=== PATIENT | male | born 1970 | race Caucasian/White ===

== ENCOUNTER 2016-08-24 22:55 | Inpatient (IN) | payer OTHER ==
[~2016-08-24] VITALS: Ht 172.7 cm; Wt 89.9 kg
[2016-08-25] MEDS ORDERED: MAALOX 30 ML SUSP *UDC PO PRN ×2 (00:15→10:45)
[2016-08-25] MEDS ORDERED: ACETAMINOPHEN TAB 650MG DOSE (2X325MG) PO PRN ×2 (00:15→10:45)
[2016-08-25] MEDS ORDERED: MOM 30ML SUSPENSION UDC PO PRN ×2 (00:15→10:45)
[2016-08-25] MEDS ORDERED: traZODone 50 MG TAB PO PRN ×2 (00:15→10:45)
--- NOTE | 2016-08-25 09:08 | REP ---
CHEST X-RAY, PA AND LATERAL: 08/25/2016. Clinical history: Leukocytosis. Comparison: 03/18/2015, 12/24/2014. Findings: Lungs are well inflated and without infiltrate, effusion, atelectasis or mass. The heart, mediastinal and hilar contours are normal. The airway is intact. Bony thorax is unremarkable. There is no free air under the diaphragm. Impression: 1. No acute cardiopulmonary change. Signed by Jayy Taylor MD 08/25/2016 09:11 A
[2016-08-25 10:13] VITALS: BP 140/84
[2016-08-25 18:00] VITALS: BP 150/90
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
[2016-08-26 06:49] VITALS: BP 141/86
--- NOTE | 2016-08-26 08:18 | HPEPDOC ---
Medical History and Physical Date of Admission Aug 25, 2016 at 00:09 History and Physical PCP: [facility] ATTENDING: Dr. Cedric Brewer HPI: 45yoM admitted to [facility] for unspecified depressive disorder, being medically examined today. No acute medical complaints today. Denies any fevers, chills, weakness, fatigue, LUIS, CP, SOB, cough, palpitations, abdominal pain, N/V /D or changes in bowel or bladder habits. PMHx: FDBH for anger issues Closed head injury 03/18/15 after a fall on a curb MRI brain 03/18/15 no acute intracranial abnormality MRA brain 03/18/[address] scan cervical spine 03/18/15 no acute abnormality. 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 Currently once per month 3 drinks. Illicit Drugs: Denies IV Drug Use: Denies Tattoos done unprofessionally: Denies FAMHX: Mother: , breast cancer Father: , [place] Siblings: One sister Alive, well Children: Alive, well Unexpected deaths due to medical reasons: None. ROS: As noted in HPI, otherwise 11pt ROS of systems reviewed and remarkable for ecchymotic area Rt abdomen which Pt states is related to hiking and that he slipped [place] near the river [place]. Pt denies any pain, abdominal pain. PE: GEN: 45yoM, appears stated age. Well-nourished, well developed. No acute distress. Alert and oriented x 3. Pleasant, interactive. HEENT: Normocephalic, atraumatic. Pupils are equal, round, and reactive to light. Extraocular movements are intact. No nystagmus appreciated. Sclera are nonicteric. Conjunctiva without injection. Nose midline. Nasal turbinates without bogginess. EACs both patent BL. TMs both visualized and jaimes with good cone of light, no bulging or erythema. No facial asymmetry. Moist mucous membranes. Dentition fair. Pharynx pink and moist, no cobblestoning. Neck supple , trachea midline. No lymphadenopathy or thyromegaly appreciated. CHEST: Regular rate and rhythm, +S1, +S2 LUNGS: Clear to auscultation bilaterally. No wheezes, rales, or rhonchi. Breathing appears symmetric and easy. Patient is speaking in full sentences. No accessory muscle use. ABD: Round, soft, non-tender, non-distended. +Bowel sounds throughout. No rebound or guarding. No costovertebral angle tenderness. EXT: Pulses 2+ bilaterally dorsalis pedis and radial. No lower extremity edema appreciated. SKIN: [place], dry, warm. Capillary refill <2sec. No rashes. Ecchymotic area noted Rt abdomen. No tenderness. No noted hematoma. NEURO: Alert and oriented x 3. Cranial nerves III-XII are intact. No focal deficits appreciated. EKG: pending. CXR 08/25/16 No acute cardiopulmonary change. A&P: 45yoM admitted to [facility] for unspecified depressive disorder 1. Psych. Plan per Psychiatry. Obtain baseline EKG to assure the safety of psychiatric medications as they can prolong the QT interval. 2. Elevated LFTs. Recheck CMP 3. Leukocytosis. Patient is afebrile. Asymptomatic. Recheck CBC. 4. Follow up with PCP on discharge. 5. Ecchymosis right abdomen. Patient states is from a fall. Pt denies any pain. Monitor. 6. Staff member Ed present throughout exam. Vital Signs Vital Signs Date Time Temp Pulse Resp B/P Pulse Ox O2 Delivery O2 Flow Rate FiO2 08/26/16 06:49 97.6 60 18 141/86 08/25/16 10:13 96 Room Air Laboratory Data Labs 24H Vital Signs Label Value Date Time Patient Temperature 97.6 degrees F 08/26/16 0649 Temperature Source Temporal 08/26/16 0649 Pulse 60 08/26/16 0649 Respiratory Rate 18 bpm 08/26/16 0649 Blood Pressure Assessment 141/86 (104) 08/26/16 0649 Bedside Pulse Oximetry 96 % 08/25/16 1013 Item Value Date Time Oxygen Delivery Method Room Air 08/25/16 1013 Sodium Level 141 MEQ/L 08/24/16 2358 Potassium Level 3.8 MEQ/L 08/24/168 Chloride Level 103 MEQ/L 08/24/16 2358 Carbon Dioxide Level 24 MEQ/L 08/24/16 2358 Anion Gap 14 MEQ/L 08/24/16 2358 Blood Urea Nitrogen 9 MG/DL 08/24/162357 Creatinine 1.14 MG/DL 08/24/162357 Glomerular Filtration Rate > 60.0 08/24/162357 Fasting Glucose 100 MG/DL 08/24/162357 Calcium Level 9.0 MG/DL 08/24/162357 Total Bilirubin 0.3 MG/DL 08/24/162357 Direct Bilirubin 0.1 MG/DL 08/24/162357 Aspartate Amino Transf (AST/SGOT) 149 U/L H 08/24/168 Alanine Aminotransferase (ALT/SGPT) 85 U/L H 08/24/162357 Alkaline Phosphatase 88 U/L 08/24/162357 Total Protein 8.1 GM/DL 08/24/162357 Albumin 4.8 GM/DL 08/24/162357 Albumin/Globulin Ratio 1.45 08/24/162357 Thyroid Stimulating Hormone (TSH) 2.190 uIU/ML 08/24/168 White Blood Count 18.7 K/mm3 H 08/25/1632 Red Blood Count 4.64 M/mm3 08/25/16 0532 Hemoglobin 15.0 g/dl 08/25/1632 Hematocrit 44.4 % 08/25/1632 Mean Corpuscular Volume 95.7 fl 08/25/1632 Mean Corpuscular Hemoglobin 32.3 pg 08/25/1632 Mean Corpuscular Hemoglobin Concent 33.8 g/dl 08/25/1632 Red Cell Distribution Width 12.4 % 08/25/1632 Platelet Count 350 k/mm3 08/25/16 0532 Neutrophils (%) (Auto) 85.0 % H 08/25/16 0532 Lymphocytes (%) (Auto) 7.5 % L 08/25/16 0532 Monocytes (%) (Auto) 5.4 % H 08/25/16 0532 Eosinophils (%) (Auto) 0.7 % 08/25/16 0532 Basophils (%) (Auto) 0.4 % 08/25/16 0532 Large Unclassified Cells % 1.1 % 08/25/16 0532 Neutrophils # (Auto) 15.9 K/mm3 H 08/25/16 0532 Lymphocytes # (Auto) 1.6 K/mm3 08/25/16 0532 Monocytes # (Auto) 1.0 K/mm3 H 08/25/16 0532 Eosinophils # (Auto) 0.1 K/mm3 08/25/16 0532 Basophils # (Auto) 0.1 K/mm3 08/25/16 0532 Large Unclassified Cells # 0.2 K/mm3 08/25/16 0532 Salicylates Level < 1.7 MG/DL L 08/24/162357 Urine Opiates Screen NEGATIVE 08/24/162357 Urine Methadone Screen NEGATIVE 08/24/168 Acetaminophen Level < 2.0 UG/ML L 08/24/162357 Urine Barbiturates Screen NEGATIVE 08/24/162357 Urine Phencyclidine Screen NEGATIVE 08/24/162357 Urine Amphetamines Screen NEGATIVE 08/24/162357 Urine Benzodiazepines Screen NEGATIVE 08/24/162357 Urine Cocaine Metabolite Screen NEGATIVE 08/24/162357 Urine Cannabinoids Screen NEGATIVE 08/24/168 Ethyl Alcohol Level 0.143 % H 08/24/16 2358 Home Medications No Active Prescriptions or Reported Meds Allergies Coded Allergies: No Known Allergies (Unverified , 03/18/15) Rubia Jama Aug 26, 2016 08:18
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
[2016-08-26 18:00] VITALS: BP 132/81
--- NOTE | 2016-08-26 18:02 | ECGEPIP ---
Stationary ECG Study [facility] Test Date: 2016-08-26 Pat Name: SARAH CASE Department: Room: [place] [address] Gender: M Experience Designer: HERMES : 1970 Requested By: Rubia Jama Order Number: [id number] Reading MD: Jose Maria Measurements Intervals [place] Rate: 53 P: 21 MI: 132 QRS: 26 QRSD: 80 T: 39 QT: 449 QTc: 425 Interpretive Statements SINUS BRADYCARDIA Otherwise normal Electronically Signed On 08-26-2016 18:02:01 EDT by Jose Maria
[2016-08-27 06:43] VITALS: BP 131/79
[2016-08-27] MEDS ORDERED: ACAM0.05 PO (09:25)
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
== END 2016-08-27 12:25 | disposition home or self-care (01) | DRG 882 ==
LOC: M ED 23:31 → M ED INP 08-25 00:09 → M PSY 08-25 09:25
PROVIDERS: ADMIT Psychiatry & Neurology Psychiatry; ATTEND Psychiatry & Neurology Child & Adolescent Psychiatry
DX: F43.20 Adjustment disorder, unspecified (principal); F10.20 Alcohol dependence, uncomplicated

== ENCOUNTER 2016-09-03 14:35 | Inpatient (IN) | payer OTHER ==
[~2016-09-03] VITALS: Ht 172.7 cm; Wt 98.6 kg
[~2016-09-03 14:35] MED LIST: ACAM0.05 PO
[2016-09-03 16:14] LABS: MEAN CORPUSCULAR HEMOGLOBIN 32.6 pg (27.0-33.0); RED CELL DISTRIBUTION WIDTH 12.3 % (11.5-14.5); WHITE BLOOD COUNT 7.5 K/mm3 (4.0-10.0)
[2016-09-03 16:32] LABS: METHADONE URINE NEGATIVE (NEGATIVE)
[2016-09-03 16:41] LABS: ALBUMIN 4.2 GM/DL (3.2-5.2); ALKALINE PHOSPHATASE 87 U/L (45-117); ALT/SGPT 38 U/L (12-78); ANION GAP 11 MEQ/L (8-16); AST/SGOT 31 U/L (15-37); BILIRUBIN,DIRECT 0.3 MG/DL (0.0-0.2); BILIRUBIN,TOTAL 0.9 MG/DL (0.2-1.0); BLOOD UREA NITROGEN 7 MG/DL (7-18); CARBON DIOXIDE LEVEL 28 MEQ/L (21-32); CHLORIDE LEVEL 98 MEQ/L (98-107); CREATININE FOR GFR 0.84 MG/DL (0.70-1.30); GLOMERULAR FILTRATION RATE > 60.0 (>60); GLUCOSE, FASTING 98 MG/DL (70-105); POTASSIUM SERUM 4.1 MEQ/L (3.5-5.1); SODIUM LEVEL 137 MEQ/L (136-145); TOTAL PROTEIN 7.7 GM/DL (6.4-8.2)
[2016-09-03] MEDS ORDERED: ACAM0.05 PO (17:26)
[2016-09-03] MEDS ORDERED: MAALOX 30 ML SUSP *UDC PO PRN (21:00)
[2016-09-03] MEDS: BACITRACIN OINT 30GM TOP SCH (21:00)
[2016-09-03] MEDS ORDERED: ACETAMINOPHEN TAB 650MG DOSE (2X325MG) PO PRN (21:00)
[2016-09-03] MEDS ORDERED: MOM 30ML SUSPENSION UDC PO PRN (21:00)
[2016-09-03] MEDS ORDERED: OLANZapine ORAL DISINTEGRATING TAB 5MG PO PRN (21:00)
[2016-09-03] MEDS: ACAMPROSATE CALCIUM 333 MG TABLET (CAMPRAL) PO SCH (21:43)
--- NOTE | 2016-09-04 00:09 | HPE ---
DATE OF ADMISSION: 09/03/2016 HISTORY OF PRESENT ILLNESS: Please refer to psychiatric history and evaluation for further details on this admission. This examination and history is intended for medical issues, which may need treatment, followup, or consult on this 45-year-old male. PRIMARY CARE PROVIDER: [facility]. ALLERGIES: No known allergies. PAST MEDICAL HISTORY: 1. [facility] for anger issues. 2. Closed-head injury 03/18/2015 after a fall on a curb. MRI of the brain 03/18/2015: No acute intracranial abnormality. MRA of the brain 03/18/[address] scan 03/18/2015: No acute abnormality. 3. Chronic low back pain. 4. Slight left hearing loss. 5. History of alcohol abuse. PAST SURGICAL HISTORY: 1. Right and left knee surgery. 2. Vasectomy. LABORATORY STUDIES: CBC was normal. Lytes were normal. BUN and creatinine were 7 and 0.84. Toxicology screen was negative. ALLERGIES: No known allergies. 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 . He was a heavy drinker until April 2016. Then he was drinking about once a month, three drinks, and then since he was admitted here last, August 25, he has had nothing to drink. FAMILY HISTORY: Noncontributory. REVIEW OF SYSTEMS: A 10-systems review was done. His only complaint was of a slight abrasion on left inner ankle, slight sore. Otherwise, review of systems was unremarkable. He felt well. OBJECTIVE: A 45-year-old cooperative male in no acute distress. Height 68 inches, weight 95 kg, body mass index (BMI) 31.8. Blood pressure 142/73, pulse 61, respirations 18, temperature 97.8. Patient is alert and oriented times three. Pupils equal and reactive to light. Extraocular movements (EOMs) intact. Corneae and sclerae are clear. Conjunctivae was normal. No facial asymmetry. Pharynx, tongue, and gums pink and moist. Tongue is midline. Neck is supple without lymphadenopathy. No thyromegaly. No goiter. Carotids 2+ without bruit. Chest clear to auscultation without wheeze or retraction. Heart is regular. Abdomen benign. Bowel sounds positive. Genitourinary/rectal not done. Extremities: No cyanosis, clubbing, or edema. Left inner ankle has small abrasion. No redness or drainage. Scabbed. Peripheral pulses equal and palpable bilaterally. Cranial nerves III-XII grossly intact. IMPRESSION AND PLAN: Psychiatric plan per psychiatry. Bacitracin to left inner ankle abrasion twice a day for 7 days. No other acute medical issues
[2016-09-04 06:31] VITALS: BP 144/92
[2016-09-04] MEDS: BACITRACIN OINT 30GM TOP SCH ×2 (09:00→20:31)
[2016-09-04] MEDS: ACAMPROSATE CALCIUM 333 MG TABLET (CAMPRAL) PO SCH ×3 (09:12→20:28)
[2016-09-04] MEDS: NICOTINE 21MG/24HR 1 EA TRANSDERMAL TD SCH (09:13)
[2016-09-04 12:00] VITALS: BP 140/80
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
[2016-09-04 18:00] VITALS: BP 140/79
[2016-09-04] MEDS: traZODone 50 MG TAB PO PRN (20:28)
[2016-09-04 22:00] VITALS: BP 165/100
[2016-09-05 06:21] VITALS: BP 147/91
[2016-09-05] MEDS: BACITRACIN OINT 30GM TOP SCH ×2 (08:17→21:00)
[2016-09-05] MEDS: ACAMPROSATE CALCIUM 333 MG TABLET (CAMPRAL) PO SCH ×3 (08:18→21:03)
[2016-09-05] MEDS: NICOTINE 21MG/24HR 1 EA TRANSDERMAL TD SCH (08:18)
--- NOTE | 2016-09-05 11:16 | IPNPDOC ---
[facility] Progress Note Progress Note DATE OF SERVICE: 09/05/16 HISTORY: day 3 of admission. VITAL SIGNS: See below. NEW TEST RESULTS: na CURRENT MEDICATIONS: See below. MENTAL STATUS EXAMINATION: Patient is a 45-year old male, who is dx with Adjustment disorder and alcohol dependence in early remission.A&O in his room, dressed in hospital garb. Speech: Is fluent, spontaneous. Language skills are grossly intact Thought processes: logical, goal directed. Thought content: family, alcohol treatment, career. Abstract reasoning, and computation: good. Description of associations: good Description of abnormal or psychotic thoughts: denies thoughts, plan or intent for suicide. No delusions, obsessions or hallucinations. Judgment: fair Insight: fair. Orientation: oriented in all spheres. Recent and remote memory: intact Attention span and concentration: adequate Fund of knowledge: full Mood: sad. Affect: congruent. DIAGNOSES: 1. alcohol dependence in early remission 2. depressive disorder ASSESSMENT:Pt is awaiting news of his transfer to [place] for alcohol treatment. He requested visitation by his 3 minor children and and order was placed to facilitate this. he doubts his 14 yo son will attend so that would mean 2 children would be on the unit. Pt is observed in his room much of the time since admission. His is a manager nursing home and her class in on the unit today and this is intimidating for him. Once they are off the unit he will return to groups. Pt reports good sleep, eating at all meals. He denies suicidal thoughts and homicidal thoughts. He continues to minimize anything related to his risk for suicide. MANAGEMENT PLAN: continue campral for alcohol cravings, encourage socialization with peers and group participation. Pt likes to be busy and to help others. TIME SPENT: 30 minutes. Vital Signs Vital Signs Date Time Temp Pulse Resp B/P Pulse Ox O2 Delivery O2 Flow Rate FiO2 09/05/16 06:21 99.3 76 18 147/91 09/03/16 19:36 97 Room Air Current Medications Current Medications Acamprosate (Campral) 666 mg TID PO Last administered on 09/05/16t 08:18; Start 09/03/16 at 21:00; Stop 10/03/16 at 20:59 Acetaminophen (Tylenol Tab) 650 mg Q6HP PRN PO HEADACHE or DISCOMFORT; Start at 21:00; Stop 10/03/16 at 20:59 Al Hydrox/Mg Hydrox/Simethicone (Mylanta) 30 ml Q4HP PRN PO HEARTBURN/ INDIGESTION; Start 09/03/16 at 21:00; Stop 10/03/16 at 20:59 Bacitracin (Bacitracin Oint) LEFT INNER ANKLE FOR 7 DAYS BID TOP ; Start at 21:00; Stop 09/10/16 at 09:01 Home Med (Med Rec Complete!) ASDIRECTED XX ; Start 09/03/16 at 17:30; Stop at 17:30; Status DC Magnesium Hydroxide (Milk Of Magnesia) 30 ml DAILYPRN PRN PO CONSTIPATION; Start 09/03/16 at 21:00; Stop 10/03/16 at 20:59 Nicotine (Nicoderm Cq 21mg) 1 patch DAILY TD Last administered on 09/04/16 09: 13; Start 09/04/16 at 09:00; Stop 10/04/16 at 08:59 Olanzapine (ZyPREXA ZYDIS) 5 mg Q6HP PRN PO AGITATION Last administered on 09/04/16 20:28; Start 09/03/16 at 21:00; Stop 09/05/16 at 21:00 Trazodone HCl (Desyrel) 50 mg QHSP PRN PO INSOMNIA Last administered on 20:28; Start 09/03/16 at 21:00; Stop 10/03/16 at 20:59 Allergies Coded Allergies: No Known Allergies (Unverified , 03/18/15) Lynn Erickson Sep 05, 2016 11:16
[2016-09-05 18:00] VITALS: BP 140/88
[2016-09-05] MEDS: traZODone 50 MG TAB PO PRN (21:03)
[2016-09-06 07:19] VITALS: BP 133/69
[2016-09-06] MEDS: ACAMPROSATE CALCIUM 333 MG TABLET (CAMPRAL) PO SCH ×3 (08:13→20:20)
[2016-09-06] MEDS: NICOTINE 21MG/24HR 1 EA TRANSDERMAL TD SCH (08:14)
[2016-09-06] MEDS: BACITRACIN OINT 30GM TOP SCH ×2 (08:14→20:20)
[2016-09-06] MEDS ORDERED: hydrOXYzine 50 MG TAB PO PRN (12:45)
--- NOTE | 2016-09-06 12:54 | IPNPDOC ---
[facility] Progress Note Progress Note DATE OF SERVICE: 09/06/16 HISTORY: Day 4 of admission. VITAL SIGNS: See below. NEW TEST RESULTS: NA CURRENT MEDICATIONS: See below. MENTAL STATUS EXAMINATION: Patient is a 45-year old male, who is being tx for adjustment disorder and alcohol dependence. Speech: Is fluent and spontaneous Language skills are good. Thought processes : linear and goal directed. Thought content: children, career, new treatment center. Abstract reasoning, and computation: good. Description of associations: good. Description of abnormal or psychotic thoughts: none present, continues to deny SI or HI Judgment: fair Insight: good. Orientation: alert and oriented x 3. Recent and remote memory: intact Attention span and concentration: good. Fund of knowledge: Full Mood: "I'm charged up". Affect: congruent DIAGNOSES: 1. Adjustment disorder 2. alcohol dependence in early remission ASSESSMENT:Mr. Rose has been accepted for inpatient Alcohol treatment in [facility]. He states he is looking forward to taking control of his life. He wants to finish out his remaining 5 years in the [employer]. He states he is accepting that his marriage is terminating and he wishes it wasn't so but "it is what it is". Mr. Rose has been seclusive to his room when the nursing students are on the unit as his knows all of them and some of them may also know him and he is trying to avoid embarrassment or feeling uncomfortable. He reports good sleep with trazodone but onset of sleep is delayed. He laid awake for 4 hours last night before he fell asleep. He c/o feeling hungover in the morning. He denies feeling anxious or having any panic. He denies feeling depressed today. He is looking forward to a visit by his children this weekend. He will meet with [facility] on Friday. His discharge is planned for Friday. MANAGEMENT PLAN: Add vistaril 50 mg at hs with trazodone to help with delayed sleep onset. Since he is already feeling poorly on awakening at 50 mg will not increase the dose. Do not want to pursue other agents. TIME SPENT: 20 minutes. Vital Signs Vital Signs Date Time Temp Pulse Resp B/P Pulse Ox O2 Delivery O2 Flow Rate FiO2 09/06/16 07:19 98.5 62 18 133/69 09/03/16 19:36 97 Room Air Current Medications Current Medications Acamprosate (Campral) 666 mg TID PO Last administered on 09/06/16 08:13; Start 09/03/16 at 21:00; Stop 10/03/16 at 20:59 Acetaminophen (Tylenol Tab) 650 mg Q6HP PRN PO HEADACHE or DISCOMFORT; Start at 21:00; Stop 10/03/16 at 20:59 Al Hydrox/Mg Hydrox/Simethicone (Mylanta) 30 ml Q4HP PRN PO HEARTBURN/ INDIGESTION; Start 09/03/16 at 21:00; Stop 10/03/16 at 20:59 Bacitracin (Bacitracin Oint) LEFT INNER ANKLE FOR 7 DAYS BID TOP ; Start at 21:00; Stop 09/10/16 at 09:01 Home Med (Med Rec Complete!) ASDIRECTED XX ; Start 09/03/16 at 17:30; Stop at 17:30; Status DC Magnesium Hydroxide (Milk Of Magnesia) 30 ml DAILYPRN PRN PO CONSTIPATION; Start 09/03/16 at 21:00; Stop 10/03/16 at 20:59 Nicotine (Nicoderm Cq 21mg) 1 patch DAILY TD Last administered on 09/04/16 09: 13; Start 09/04/16 at 09:00; Stop 10/04/16 at 08:59 Olanzapine (ZyPREXA ZYDIS) 5 mg Q6HP PRN PO AGITATION Last administered on 09/04/16 20:28; Start 09/03/16 at 21:00; Stop 09/05/16 at 21:00; Status DC Trazodone HCl (Desyrel) 50 mg QHSP PRN PO INSOMNIA Last administered on 21:03; Start 09/03/16 at 21:00; Stop 10/03/16 at 20:59 Allergies Coded Allergies: No Known Allergies (Unverified , 03/18/15) Lynn Erickson Sep 06, 2016 12:54
[2016-09-06 18:00] VITALS: BP 144/68
[2016-09-06] MEDS: traZODone 50 MG TAB PO PRN (20:20)
[2016-09-07 06:41] VITALS: BP 134/82
[2016-09-07] MEDS: BACITRACIN OINT 30GM TOP SCH ×2 (09:00→20:14)
[2016-09-07] MEDS: NICOTINE 21MG/24HR 1 EA TRANSDERMAL TD SCH (09:01)
[2016-09-07] MEDS: ACAMPROSATE CALCIUM 333 MG TABLET (CAMPRAL) PO SCH ×3 (09:01→20:15)
[2016-09-07] MEDS ORDERED: hydrOXYzine 25 MG TAB PO ONE (12:00)
[2016-09-07 18:00] VITALS: BP 134/80
--- NOTE | 2016-09-07 18:57 | IPNPDOC ---
[facility] Progress Note Progress Note DATE OF SERVICE: 09/07/16 INTERVAL HISTORY: Medication Side effects: The patient reports that the trazodone and hydroxyzine was too sedating for him and that he experienced daytime fatigue and lethargy after using them Behavior/events: Has a meeting with his family today and he is very anxious as his children have related that they do not love him Group Attendance: Attended groups today Psychiatric Symptoms: The patient states that his sleep remains problematic and that his anxiety remains somewhat uncontrolled. He denies experiencing any depressed mood currently. VITAL SIGNS: See below. NEW TEST RESULTS: See below CURRENT MEDICATIONS: See below. MENTAL STATUS EXAMINATION: General: Well dressed with good hygiene Speech: Spontaneous and fluid Thought processes: Linear and logical Thought content: Worries about meeting with children Abstract reasoning, and computation: Intact Description of associations: Intact Description of abnormal or psychotic thoughts:Denies any suicidal or homicidal ideation. Denies any auditory or visual hallucinations. Does not appear to be responding to internal stimuli. Does not appear to be endorsing any bizarre or paranoid ideation. Judgment: Fair Insight: Fair Orientation: Alert and orientated 3 Recent and remote memory: Intact Attention span and concentration: Intact Fund of knowledge: Adequate Mood: "Okay" Affect: Anxious and constricted DIAGNOSES: 1. Unspecified trauma/stressor related disorder. 2. Alcohol use disorder, severe, in controlled setting. 3. Insomnia. ASSESSMENT: The patient appears to be suffering from an unspecified trauma/ stressor related disorder, however apparently is being slated for treatment and long-term treatment facility. His primary complaint today appears to be around his insomnia and he appears to been refractory to trazodone and Vistaril. MANAGEMENT PLAN: Medications: Discontinue trazodone and Vistaril at night start Rozerem 4 mg at satellite project site monitor for affect Psychotherapy: Encourage group therapy Social: Meeting today with family with possible discharge Friday to long-term facility Misc: None Disposition: The patient will need of further inpatient stay to address medication titrations and disposition. TIME SPENT: 20 minutes. Vital Signs Vital Signs Date Time Temp Pulse Resp B/P Pulse Ox O2 Delivery O2 Flow Rate FiO2 09/07/16 06:41 98.0 60 18 134/82 09/03/16 19:36 97 Room Air Current Medications Current Medications Acamprosate (Campral) 666 mg TID PO Last administered on 09/07/16 15:50; Start 09/03/16 at 21:00; Stop 10/03/16 at 20:59 Acetaminophen (Tylenol Tab) 650 mg Q6HP PRN PO HEADACHE or DISCOMFORT; Start at 21:00; Stop 10/03/16 at 20:59 Al Hydrox/Mg Hydrox/Simethicone (Mylanta) 30 ml Q4HP PRN PO HEARTBURN/ INDIGESTION; Start 09/03/16 at 21:00; Stop 10/03/16 at 20:59 Bacitracin (Bacitracin Oint) LEFT INNER ANKLE FOR 7 DAYS BID TOP Last administered on 09/06/16 20:20; Start 09/03/16 at 21:00; Stop 09/10/16 at 09:01 Home Med (Med Rec Complete!) ASDIRECTED XX ; Start 09/03/16 at 17:30; Stop at 17:30; Status DC Hydroxyzine HCl (Atarax) 50 mg QHS PRN PO sleep; Start 09/06/16 at 12:45; Stop 09/07/16 at 17:37; Status DC Magnesium Hydroxide (Milk Of Magnesia) 30 ml DAILYPRN PRN PO CONSTIPATION; Start 09/03/16 at 21:00; Stop 10/03/16 at 20:59 Nicotine (Nicoderm Cq 21mg) 1 patch DAILY TD Last administered on 09/07/16 09: 01; Start 09/04/16 at 09:00; Stop 10/04/16 at 08:59 Olanzapine (ZyPREXA ZYDIS) 5 mg Q6HP PRN PO AGITATION Last administered on 09/04/16 20:28; Start 09/03/16 at 21:00; Stop 09/05/16 at 21:00; Status DC Ramelteon (Rozerem) 4 mg QHS PO ; Start 09/07/16 at 21:00; Stop 10/07/16 at 20: 59 Trazodone HCl (Desyrel) 50 mg QHSP PRN PO INSOMNIA Last administered on 20:20; Start 09/03/16 at 21:00; Stop 09/07/16 at 17:37; Status DC Allergies Coded Allergies: No Known Allergies (Unverified , 03/18/15) GME ATTESTATION My preceptor for this patient encounter was physically present in the building during the encounter and was fully available. As needed, all aspects of the patient interview, examination, medical decision making process, and medical care plan development were reviewed and approved by the preceptor. Preceptor is aware and concurs with the plan as stated in the body of this note and will attest to such by his/her cosignature. SG CARRASCO DO Sep 07, 2016 18:57
[2016-09-07] MEDS ORDERED: RAMELTEON 8 MG TAB (ROZEREM) PO SCH (21:00)
[2016-09-08 06:50] VITALS: BP 141/71
[2016-09-08] MEDS: NICOTINE 21MG/24HR 1 EA TRANSDERMAL TD SCH (09:01)
[2016-09-08] MEDS: ACAMPROSATE CALCIUM 333 MG TABLET (CAMPRAL) PO SCH ×3 (09:02→20:05)
[2016-09-08] MEDS: BACITRACIN OINT 30GM TOP SCH ×2 (09:02→20:04)
[2016-09-08 18:00] VITALS: BP 134/78
--- NOTE | 2016-09-08 18:45 | IPNPDOC ---
[facility] Progress Note Progress Note DATE OF SERVICE: 09/08/16 HISTORY: Patient is a 45-year-old male, who was recently discharged from [facility]. He was brought to the emergency room because his brother in law reported that the patient had made a video giving detailed instructions because he was going to kill himself. The patient reported that he was angry because his was unfaithful and they are not . he has been taking Campral TID for his drinking problem and he states that he was very concerned about his daughter who has a high risk . He had a negative toxicology. today, he states he had a good visit with his and yesterday a good visit with his family. He said he is working on his marital problems with his and feels happy today but admits he has mood swings and gets easily irritated. he says he has been having trouble sleeping. VITAL SIGNS: See below. NEW TEST RESULTS: None. CURRENT MEDICATIONS: See below. MENTAL STATUS EXAMINATION: Patient is a 45-year old male, who is alert, cooperative, with good eye contact Speech: Is fast, normal Language skills are normal Thought processes including: linear. Thought content: negative for suicidal thoughts, for homicidal thoughts, for delusional thoughts. Abstract reasoning, and computation: Fair. Description of associations: No loosening of associations. Description of abnormal or psychotic thoughts: no psychotic thoughts. Judgment: Improving. Insight: Improving. Orientation: Oriented x 3. Recent and remote memory: Fair. Attention span and concentration: Fair. Language: Normal. Fund of knowledge: Full. Mood: "I'm doing great". Affect: labile DIAGNOSES: 1. Adjustment Disorder 2. R/O MDD 3. R/O Bipolar D/O . ASSESSMENT:I believe the patient has high energy levels, speaks fast, reports mood swings and being easily irritated. Perhaps Bipolarity should be explored. since he continues to complaint of lack of sleep, his sleep medication was increased. MANAGEMENT PLAN: continue with current treatment, consider the possibility of bipolar D/O.. TIME SPENT: 15 minutes. Vital Signs Vital Signs Date Time Temp Pulse Resp B/P Pulse Ox O2 Delivery O2 Flow Rate FiO2 09/08/16 06:50 97.8 59 16 141/71 09/03/16 19:36 97 Room Air Current Medications Current Medications Acamprosate (Campral) 666 mg TID PO Last administered on 09/08/16 15:16; Start 09/03/16 at 21:00; Stop 10/03/16 at 20:59 Acetaminophen (Tylenol Tab) 650 mg Q6HP PRN PO HEADACHE or DISCOMFORT; Start at 21:00; Stop 10/03/16 at 20:59 Al Hydrox/Mg Hydrox/Simethicone (Mylanta) 30 ml Q4HP PRN PO HEARTBURN/ INDIGESTION; Start 09/03/16 at 21:00; Stop 10/03/16 at 20:59 Bacitracin (Bacitracin Oint) LEFT INNER ANKLE FOR 7 DAYS BID TOP Last administered on 09/08/16 09:02; Start 09/03/16 at 21:00; Stop 09/10/16 at 09:01 Home Med (Med Rec Complete!) ASDIRECTED XX ; Start 09/03/16 at 17:30; Stop at 17:30; Status DC Hydroxyzine HCl (Atarax) 50 mg QHS PRN PO sleep; Start 09/06/16 at 12:45; Stop 09/07/16 at 17:37; Status DC Magnesium Hydroxide (Milk Of Magnesia) 30 ml DAILYPRN PRN PO CONSTIPATION; Start 09/03/16 at 21:00; Stop 10/03/16 at 20:59 Nicotine (Nicoderm Cq 21mg) 1 patch DAILY TD Last administered on 09/08/16 09: 01; Start 09/04/16 at 09:00; Stop 10/04/16 at 08:59 Olanzapine (ZyPREXA ZYDIS) 5 mg Q6HP PRN PO AGITATION Last administered on 09/04/16 20:28; Start 09/03/16 at 21:00; Stop 09/05/16 at 21:00; Status DC Ramelteon (Rozerem) 4 mg QHS PO Last administered on 09/07/16 20:14; Start at 21:00; Stop 10/07/16 at 20:59 Trazodone HCl (Desyrel) 50 mg QHSP PRN PO INSOMNIA Last administered on 20:20; Start 09/03/16 at 21:00; Stop 09/07/16 at 17:37; Status DC Allergies Coded Allergies: No Known Allergies (Unverified , 03/18/15) ISIDRO DALE MD Sep 08, 2016 18:45
[2016-09-08] MEDS: RAMELTEON 8 MG TAB (ROZEREM) PO SCH (20:05)
[2016-09-09 06:27] VITALS: BP 142/89
[2016-09-09] MEDS: BACITRACIN OINT 30GM TOP SCH ×2 (08:19→20:34)
[2016-09-09] MEDS: ACAMPROSATE CALCIUM 333 MG TABLET (CAMPRAL) PO SCH ×3 (08:20→20:35)
[2016-09-09] MEDS: NICOTINE 21MG/24HR 1 EA TRANSDERMAL TD SCH (08:21)
--- NOTE | 2016-09-09 10:50 | IPNPDOC ---
[facility] Progress Note Progress Note DATE OF SERVICE: 09/09/16 HISTORY: Day 7 of admission. Pt awaiting transfer to Inpatient Alcohol treatment center. Transfer scheduled for tomorrow. VITAL SIGNS: See below. NEW TEST RESULTS: na CURRENT MEDICATIONS: See below. MENTAL STATUS EXAMINATION: Patient is a 45 year old male, who is being treated for alcohol dependence and adjustment disorder, R/O bipolar I disorder Speech: Is spontaneous Language skills are good/intact Thought processes : linear and goal directed. Thought content: family, career. Abstract reasoning, and computation: adequate. Description of associations: good. Description of abnormal or psychotic thoughts: none, denies suicidal thought, intent or plan, no psychotic symptoms illicited. Judgment: fair Insight: fair Orientation: well oriented in all spheres. Recent and remote memory: intact Attention span and concentration: adequate Fund of knowledge: Full Mood: euthymic. Affect: hyper DIAGNOSES: 1. adjustment disorder with depressed mood 2. alcohol dependence in remission 3. r/o bipolar disorder ASSESSMENT:Notes by Dr. Teixeira reviewed and discussed with her and the patient. Pt does endorse symptoms of mallika evidenced by lack of sleep sometimes for several days at a time. Not feeling tired even though he is not sleeping. Excessive energy. Mood swings that he reports are long-standing. H/o irritable mood and anger. It may be that pt has been self-medicating for years when in fact he has a bipolar dx. He is not certain, but he believes a cousin or two may have bipolar disorder. His periods of mallika are followed by depression and anger. Pt states the addition of vistaril to trazodone was not successful and he did not sleep. He was evaluated by Dr. Hooker and started on rozerem. Dose was increased by Dr. Teixeira but pt only slept 90 mins last night. Suggest he try the medication again tonight as it may take more than one dose to become effective. MANAGEMENT PLAN: It is not cook to start pt on a new medication regime (such as depakote) when he is scheduled to leave tomorrow. Should he start a new medication and have side effects it could derail his substance abuse treatment. Pt was educated on bipolar disorder and it is recommended he follow up with the U at [facility] when he returns from [place]. Pt's command did not arrive as planned at 12 noon to present pts plan for discharge/transfer to [place] facility. Voip Network Technician not able to get in touch [place] anyone [place] so we will await word from them. Pt requested visitation order for his minor son who would like to visit this evening. Order provided. TIME SPENT: 20 minutes. Vital Signs Vital Signs Date Time Temp Pulse Resp B/P Pulse Ox O2 Delivery O2 Flow Rate FiO2 09/09/16 06:27 97.7 60 14 142/89 Room Air 09/03/16 19:36 97 Current Medications Current Medications Acamprosate (Campral) 666 mg TID PO Last administered on 09/09/16 08:20; Start 09/03/16 at 21:00; Stop 10/03/16 at 20:59 Acetaminophen (Tylenol Tab) 650 mg Q6HP PRN PO HEADACHE or DISCOMFORT; Start at 21:00; Stop 10/03/16 at 20:59 Al Hydrox/Mg Hydrox/Simethicone (Mylanta) 30 ml Q4HP PRN PO HEARTBURN/ INDIGESTION; Start 09/03/16 at 21:00; Stop 10/03/16 at 20:59 Bacitracin (Bacitracin Oint) LEFT INNER ANKLE FOR 7 DAYS BID TOP Last administered on 09/08/16 20:04; Start 09/03/16 at 21:00; Stop 09/10/16 at 09:01 Home Med (Med Rec Complete!) ASDIRECTED XX ; Start 09/03/16 at 17:30; Stop at 17:30; Status DC Hydroxyzine HCl (Atarax) 50 mg QHS PRN PO sleep; Start 09/06/16 at 12:45; Stop 09/07/16 at 17:37; Status DC Magnesium Hydroxide (Milk Of Magnesia) 30 ml DAILYPRN PRN PO CONSTIPATION; Start 09/03/16 at 21:00; Stop 10/03/16 at 20:59 Nicotine (Nicoderm Cq 21mg) 1 patch DAILY TD Last administered on 09/09/16 08: 21; Start 09/04/16 at 09:00; Stop 10/04/16 at 08:59 Olanzapine (ZyPREXA ZYDIS) 5 mg Q6HP PRN PO AGITATION Last administered on 4/19/17at 20:28; Start 09/03/16 at 21:00; Stop 09/05/16 at 21:00; Status DC Ramelteon (Rozerem) 4 mg QHS PO Last administered on 09/07/16 20:14; Start at 21:00; Stop 09/08/16 at 19:16; Status DC Ramelteon (Rozerem) 8 mg QHS PO Last administered on 09/08/16 20:05; Start at 21:00; Stop 10/08/16 at 20:59 Trazodone HCl (Desyrel) 50 mg QHSP PRN PO INSOMNIA Last administered on 20:20; Start 09/03/16 at 21:00; Stop 09/07/16 at 17:37; Status DC Allergies Coded Allergies: No Known Allergies (Unverified , 03/18/15) Lynn Erickson Sep 09, 2016 10:50
[2016-09-09 18:00] VITALS: BP 173/93
[2016-09-09] MEDS: RAMELTEON 8 MG TAB (ROZEREM) PO SCH (20:35)
[2016-09-10 06:25] VITALS: BP 131/81
[2016-09-10] MEDS: ACAMPROSATE CALCIUM 333 MG TABLET (CAMPRAL) PO SCH ×3 (08:19→21:22)
[2016-09-10] MEDS: NICOTINE 21MG/24HR 1 EA TRANSDERMAL TD SCH (08:20)
[2016-09-10] MEDS: BACITRACIN OINT 30GM TOP SCH (08:21)
[2016-09-10] MEDS ORDERED: ACAM0.05 PO (11:25)
--- NOTE | 2016-09-10 14:39 | IPNPDOC ---
[facility] Progress Note Progress Note DATE OF SERVICE: 09/10/16 HISTORY: Day 8 of admission. Pt is awaiting transfer to [facility] by the [facility]. VITAL SIGNS: See below. NEW TEST RESULTS: na CURRENT MEDICATIONS: See below. MENTAL STATUS EXAMINATION: Patient is a 45-year old male, who is being treated for alcohol dependence, r/o Bipolar I disorder, dressed in shorts and a T-shirt, observed in room much of the day waiting for command. Speech: Is clear, spontaneous. Language skills are intact Thought processes:clear and logical Thought content: budget, Abstract reasoning, and computation: good. Description of associations: good Description of abnormal or psychotic thoughts: denies SI, continues to deny suicidal or homicidal thoughts. Judgment: good. Insight: good, Orientation: A & O x 3 Recent and remote memory: intact Attention span and concentration: good Fund of knowledge: Full Mood: anxious. Affect: congruent DIAGNOSES: 1. adjustment disorder 2. r/o Bipolar I disorder Alcohol dependence 2. 3. ASSESSMENT:Pt is attending select groups and is out of his room when more in the afternoon than in the a.m. May be due to student nurses on the unit who know his . He denies worries or concerns about his future. he is only getting about 1.5 to 3 hours of sleeper night. Sleep med is not helping. His CARMEN did not present at noon as anticipated to get him into residential alcohol treatment. He is prepared to go. Pt and staff are reluctant to start new medications for bipolar disorder. 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 MANAGEMENT PLAN: Will discontinue rozerem as it is ineffective, will discuss options with pt. Pt agreed to a trial of an antipsychotic, off label use for sleep. Will order quetiapine 100 mg at hs. Pt will not be leaving now until per a call received late today from his Command. TIME SPENT: 30 minutes. Vital Signs Vital Signs Date Time Temp Pulse Resp B/P Pulse Ox O2 Delivery O2 Flow Rate FiO2 09/10/16 06:25 97.5 92 18 131/81 09/09/16 06:27 Room Air Current Medications Current Medications Acamprosate (Campral) 666 mg TID PO Last administered on 09/10/16t 08:19; Start 09/03/16 at 21:00; Stop 10/03/16 at 20:59 Acetaminophen (Tylenol Tab) 650 mg Q6HP PRN PO HEADACHE or DISCOMFORT; Start at 21:00; Stop 10/03/16 at 20:59 Al Hydrox/Mg Hydrox/Simethicone (Mylanta) 30 ml Q4HP PRN PO HEARTBURN/ INDIGESTION; Start 09/03/16 at 21:00; Stop 10/03/16 at 20:59 Bacitracin (Bacitracin Oint) LEFT INNER ANKLE FOR 7 DAYS BID TOP Last administered on 09/09/16 20:34; Start 09/03/16 at 21:00; Stop 09/10/16 at 09:01 ; Status DC Home Med (Med Rec Complete!) ASDIRECTED XX ; Start 09/03/16 at 17:30; Stop at 17:30; Status DC Hydroxyzine HCl (Atarax) 50 mg QHS PRN PO sleep; Start 09/06/16 at 12:45; Stop 09/07/16 at 17:37; Status DC Magnesium Hydroxide (Milk Of Magnesia) 30 ml DAILYPRN PRN PO CONSTIPATION; Start 09/03/16 at 21:00; Stop 10/03/16 at 20:59 Nicotine (Nicoderm Cq 21mg) 1 patch DAILY TD Last administered on 09/10/16 08: 20; Start 09/04/16 at 09:00; Stop 10/04/16 at 08:59 Olanzapine (ZyPREXA ZYDIS) 5 mg Q6HP PRN PO AGITATION Last administered on 09/04/16 20:28; Start 09/03/16 at 21:00; Stop 09/05/16 at 21:00; Status DC Ramelteon (Rozerem) 4 mg QHS PO Last administered on 09/07/16 20:14; Start at 21:00; Stop 09/08/16 at 19:16; Status DC Ramelteon (Rozerem) 8 mg QHS PO Last administered on 09/09/16 20:35; Start at 21:00; Stop 10/08/16 at 20:59 Trazodone HCl (Desyrel) 50 mg QHSP PRN PO INSOMNIA Last administered on t 20:20; Start 09/03/16 at 21:00; Stop 09/07/16 at 17:37; Status DC Allergies Coded Allergies: No Known Allergies (Unverified , 03/18/15) Lynn Erickson Sep 10, 2016 14:39
[2016-09-10 18:00] VITALS: BP 136/87
[2016-09-10] MEDS: RAMELTEON 8 MG TAB (ROZEREM) PO SCH (21:22)
[2016-09-10] MEDS: QUEtiapine FUMARATE 100 MG TAB PO SCH (21:22)
[2016-09-11 06:34] VITALS: BP 138/72
[2016-09-11] MEDS: NICOTINE 21MG/24HR 1 EA TRANSDERMAL TD SCH (08:15)
[2016-09-11] MEDS: ACAMPROSATE CALCIUM 333 MG TABLET (CAMPRAL) PO SCH ×3 (08:16→20:05)
--- NOTE | 2016-09-11 15:28 | IPNPDOC ---
[facility] Progress Note Progress Note DATE OF SERVICE: 09/11/16 HISTORY: Day 8 of admission. Awaiting transport by the [employer] to treatment center in [place]. VITAL SIGNS: See below. NEW TEST RESULTS: none CURRENT MEDICATIONS: See below. 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 Speech: Is spontaneous and fluent Language skills are good. Thought processes including: linear and goal directed. Thought content: alcohol treatment, family, career. Abstract reasoning, and computation: good. Description of associations: good. Description of abnormal or psychotic thoughts: none, no SI reported. Judgment: good. Insight: good. Orientation: A&O in all spheres. Recent and remote memory: grossly intact Attention span and concentration: adequate Fund of knowledge: Full Mood: euthymic. Affect: congruent. DIAGNOSES: 1. Adjustment disorder, current mood depressed. 2. alcohol dependence in remission 3. r/o bipolar disorder ASSESSMENT:Pt was able to sleep for 5-6 hours last night when he combined Rozerem with seroquel. Feels better today after getting some rest. Pt likely has undiagnoised bipolar I disorder. We have not started treatment as we did not want to have anything interfere with his transfer for substance abuse treatment. He would likely benefit form either lamictal or depakote - mostly likely depakote would help with his anger and impulse control. These 2 meds could be used in combination also. MANAGEMENT PLAN: Mr. Rose is patiently awaiting his transfer to [facility]. he keeps to himself most of the time. He has visited his family this week including the son that he often has disagreements with. He felt encouraged when his son hugged him. After 28 days of inpatient treatment, Mr. Rose will return to [facility] and follow up with their U. He does sleep when given 100 mg of seroquel. TIME SPENT: 15 minutes. Vital Signs Vital Signs Date Time Temp Pulse Resp B/P (MAP) Pulse Ox O2 Delivery O2 Flow Rate FiO2 09/11/16 06:34 98.5 69 16 138/72 (94) Room Air Current Medications Current Medications Acamprosate (Campral) 666 mg TID PO Last administered on 09/11/16 08:16; Start 09/03/16 at 21:00; Stop 10/03/16 at 20:59 Acetaminophen (Tylenol Tab) 650 mg Q6HP PRN PO HEADACHE or DISCOMFORT; Start at 21:00; Stop 10/03/16 at 20:59 Al Hydrox/Mg Hydrox/Simethicone (Mylanta) 30 ml Q4HP PRN PO HEARTBURN/ INDIGESTION; Start 09/03/16 at 21:00; Stop 10/03/16 at 20:59 Bacitracin (Bacitracin Oint) LEFT INNER ANKLE FOR 7 DAYS BID TOP Last administered on 09/09/16 20:34; Start 09/03/16 at 21:00; Stop 09/10/16 at 09:01 ; Status DC Home Med (Med Rec Complete!) ASDIRECTED XX ; Start 09/03/16 at 17:30; Stop at 17:30; Status DC Hydroxyzine HCl (Atarax) 50 mg QHS PRN PO sleep; Start 09/06/16 at 12:45; Stop 09/07/16 at 17:37; Status DC Magnesium Hydroxide (Milk Of Magnesia) 30 ml DAILYPRN PRN PO CONSTIPATION; Start 09/03/16 at 21:00; Stop 10/03/16 at 20:59 Nicotine (Nicoderm Cq 21mg) 1 patch DAILY TD Last administered on 09/11/16 08: 15; Start 09/04/16 at 09:00; Stop 10/04/16 at 08:59 Olanzapine (ZyPREXA ZYDIS) 5 mg Q6HP PRN PO AGITATION Last administered on 09/04/16 20:28; Start 09/03/16 at 21:00; Stop 09/05/16 at 21:00; Status DC Quetiapine Fumarate (SEROquel) 100 mg QHS PO Last administered on 09/10/16 21: 22; Start 09/10/16 at 21:00; Stop 10/10/16 at 20:59 Ramelteon (Rozerem) 4 mg QHS PO Last administered on 09/07/16 20:14; Start at 21:00; Stop 09/08/16 at 19:16; Status DC Ramelteon (Rozerem) 8 mg QHS PO Last administered on 09/10/16 21:22; Start at 21:00; Stop 10/08/16 at 20:59 Trazodone HCl (Desyrel) 50 mg QHSP PRN PO INSOMNIA Last administered on 20:20; Start 09/03/16 at 21:00; Stop 09/07/16 at 17:37; Status DC Allergies Coded Allergies: No Known Allergies (Unverified , 03/18/15) Lynn Erickson Sep 11, 2016 15:28
[2016-09-11 18:00] VITALS: BP 118/58
[2016-09-11] MEDS: QUEtiapine FUMARATE 100 MG TAB PO SCH (20:05)
[2016-09-11] MEDS: RAMELTEON 8 MG TAB (ROZEREM) PO SCH (20:05)
[2016-09-12 06:20] VITALS: BP 128/78
[2016-09-12] MEDS: ACAMPROSATE CALCIUM 333 MG TABLET (CAMPRAL) PO SCH (08:52)
[2016-09-12] MEDS: NICOTINE 21MG/24HR 1 EA TRANSDERMAL TD SCH (08:52)
[2016-09-12] MEDS ORDERED: QUET1TAB8 PO (09:07)
--- NOTE | 2016-09-12 12:58 | DS.PDOC ---
[facility] Discharge Summary Discharge Summary DATE OF ADMISSION: Sep 03, 2016 at 18:40 DATE OF DISCHARGE: Sep 12, 2016 @ 1500 DISCHARGE DIAGNOSES: 1. Adjustment disorder with depressed mood 2. Alcohol dependence 3. R/O Bipolar I disorder, current episode manic. REASON FOR ADMISSION: Pt made a video that his family viewed where he lays out his plan for suicide. CONSULTANTS INVOLVED: NA TREATMENT AND PROGRESS ON THE UNIT : Pt was readmitted within 7 days of his first psychiatric admission. He was started on Campral during his first admission and has done well on it. He has not used alcohol in the past 3 weeks. During this admission he has not been able to sleep. His speech is rapid but his TP is linear. He denies racing thoughts or being distracted by his thoughts. However he does admit to going 3 days or so with little to no sleep on a regular basis and does not feel the need for sleep when this happens. By history he is angry, argumentative and irritable. Dr. Teixeira felt he may have bipolar disorder. He did sleep one night recently when he took his first dose of quetiapine 100 mg with Rozerem. The second night he took the same medication and did not sleep. He appears tired and admits to feeling tired now. He remains on the Campral without and side effects, however one main side effect of Campral is insomnia. If he is able to remain sober without the Campral it may be cook to stop it. We did not pursue alternative meds or initiate bipolar medications due to the fact that this patient is going from the hospital to a 28 day inpatient treatment facility for alcohol treatment. We did not want to begin any medications that would interfere with that plan. It is recommended this be further pursued by the next facility and/or outpatient treatment on [place] once he returns. Pt has been keeping to himself and participates very little in unit activities. Little interaction with peers. Some of this is due to the fact that student nurses are often on the unit and his soon to be ex- was a part of their group. HOSPITAL COURSE:Pt has been medication compliant. He has followed all unit rules and routines. He is pleasant on approach. No behavior problems. VS have been stable. No acute withdrawal symptoms were ever experienced by Mr. Rose. Mood is euthymic, attitude is positive. Affect is tired today as he is not sleeping. DISCHARGE ASSESSMENT:Pt may be experiencing insomnia secondary to treatment with Campral. Pt will leave the hospital for inpatient alcohol treatment. He has a long h/o alcohol use and has been suicidal many times in the recent past. He denies suicide but the evidence surrounding him is quite convincing. He was found soaking wet after texting his that he was going to kill himself at the area where he [place] hiking. The second episode involved a video he made and sent to his and was "accidently" shared by him with his brother in law who notified [employer] [place]. Pt learned between hospital admissions that his had already begun dating and had slept with another man. He was angered by this but did not drink. He apparently became suicidal but is in denial about this. He has now come to accept his 's decision to proceed with a due to his h/o anger issues and drinking issues. He wants to remain involved in his children's lives. He has 3 children, one of which is and due very soon. Pt has 5 years left in the [employer] before he is eligible for senior care. He states it is his intention to complete the remaining 5 years. His command is supportive of this. MENTAL STATUS EXAMINATION ON DISCHARGE: Patient is a 45 year old male, who is dressed in shorts and t-shirt and appears with dark circles under his eyes. Speech is spontaneous Language skills are good. Thought processes including: linear. Thought content: future oriented Abstract reasoning, and computation: good Description of associations: good Description of abnormal or psychotic thoughts: none Judgment: good Insight: fair Orientation to well oriented in all spheres. Recent and remote memory: intact Attention span and concentration: good Fund of knowledge: full Mood: euthymic Affect: tired, MEDICATIONS ON DISCHARGE: - for . - for . - for . PLAN/FOLLOWUP ARRANGEMENTS: . The amount of time spent in the coordination of care for this patient was approximately 30 minutes. Vital Signs/I&Os Vital Signs Date Time Temp Pulse Resp B/P (MAP) Pulse Ox O2 Delivery O2 Flow Rate FiO2 09/12/16 06:20 97.5 58 16 128/78 (95) Room Air Medications Scheduled Acamprosate Calcium (Acamprosate Calcium Dr) 333 Mg Tab, 666 MG PO TID for WITHDRAWAL SYMPTOMS, #21 Quetiapine Fumerate (Quetiapine Fumarate) 100 Mg Tab, 100 MG PO QHS for INSOMNIA for 7 Days, #7 Allergies Coded Allergies: No Known Allergies (Unverified , 03/18/15) Lynn Erickson Sep 12, 2016 12:58
== END 2016-09-12 14:20 | DRG 881 ==
LOC: M ED 16:41 → M ED INP 18:40 → M PSY 20:00
PROVIDERS: ADMIT Psychiatry & Neurology Psychiatry; ATTEND Psychiatry & Neurology Child & Adolescent Psychiatry
DX: F43.21 Adjustment disorder with depressed mood (principal); F10.20 Alcohol dependence, uncomplicated; F31.9 Bipolar disorder, unspecified; M54.5 Low back pain; Z79.899 Other long term (current) drug therapy

== ENCOUNTER 2017-07-07 22:13 | Inpatient (IN) | payer OTHER ==
[2017-07-07 22:59] LABS: HEMATOCRIT 42.2 % (42.0-52.0); HEMOGLOBIN 14.4 g/dl (14.0-18.0); MEAN CORPUSCULAR HEMOGLOBIN 31.6 pg (27.0-33.0); MEAN CORPUSCULAR HGB CONC 34.1 g/dl (32.0-36.5); MEAN CORPUSCULAR VOLUME 92.7 fl (80.0-96.0); PLATELET COUNT, AUTOMATED 268 10^3/uL (150-450); RED BLOOD COUNT 4.55 10^6/uL (4.30-6.10); RED CELL DISTRIBUTION WIDTH 14.2 % (11.5-14.5); WHITE BLOOD COUNT 7.7 10^3/uL (4.0-10.0)
[2017-07-07 23:16] LABS: AMPHETAMINES LEVEL URINE NEGATIVE (NEGATIVE); BARBITURATES URINE NEGATIVE (NEGATIVE); BENZODIAZEPINES URINE NEGATIVE (NEGATIVE); CANNABINOIDS URINE NEGATIVE (NEGATIVE); COCAINE METABOLITE URINE NEGATIVE (NEGATIVE); METHADONE URINE NEGATIVE (NEGATIVE); OPIATES URINE NEGATIVE (NEGATIVE); PHENCYCLIDINE URINE NEGATIVE (NEGATIVE)
[2017-07-07 23:17] LABS: ALBUMIN 4.3 GM/DL (3.2-5.2); ALBUMIN/GLOBULIN RATIO 1.16 (1.00-1.93); ALKALINE PHOSPHATASE 89 U/L (45-117); ALT/SGPT 89 U/L (12-78); ANION GAP 11 MEQ/L (8-16); AST/SGOT 69 U/L (7-37); BILIRUBIN,DIRECT 0.2 MG/DL (0.0-0.2); BILIRUBIN,TOTAL 0.4 MG/DL (0.2-1.0); BLOOD UREA NITROGEN 11 MG/DL (7-18); CALCIUM LEVEL 8.4 MG/DL (8.5-10.1); CARBON DIOXIDE LEVEL 25 MEQ/L (21-32); CHLORIDE LEVEL 105 MEQ/L (98-107); CREATININE FOR GFR 1.01 MG/DL (0.70-1.30); GLOMERULAR FILTRATION RATE > 60.0 (>60); GLUCOSE, FASTING 105 MG/DL (70-100); POTASSIUM SERUM 3.8 MEQ/L (3.5-5.1); SALICYLATE LEVEL < 1.7 MG/DL (5.0-30.0); SODIUM LEVEL 141 MEQ/L (136-145)
[2017-07-08 03:40] LABS: ACETAMINOPHEN LEVEL 15.3 UG/ML (10.0-30.0)
[2017-07-08] MEDS ORDERED: MAALOX 30 ML SUSP *UDC PO (06:15)
[2017-07-08] MEDS ORDERED: traZODone 50 MG TAB PO (06:15)
[2017-07-08] MEDS ORDERED: MOM 30ML SUSPENSION UDC PO (06:15)
[2017-07-08] MEDS: THIAMINE 100 MG TAB PO ×2 (11:13→21:49)
[2017-07-08] MEDS: FOLIC ACID 1 MG TAB PO (11:13)
[2017-07-08] MEDS: LORazepam 2 MG TAB PO (11:13)
[2017-07-08] MEDS: MULTIVITAMINS/MINERALS THERAP 1 TAB PO (11:13)
[2017-07-08] MEDS ORDERED: POLYVINYL ALCOHOL OPHTH SOLN 15 ML(LIQUITEARS) OU (14:15)
[2017-07-08] MEDS: ACAMPROSATE CALCIUM 333 MG TABLET (CAMPRAL) PO ×2 (15:58→21:49)
[2017-07-08] MEDS: PARoxetine 25 MG CR TAB (PAXIL CR) PO (15:58)
[2017-07-09 07:52] LABS: ALBUMIN 3.9 GM/DL (3.2-5.2); ALBUMIN/GLOBULIN RATIO 1.26 (1.00-1.93); ALKALINE PHOSPHATASE 75 U/L (45-117); ALT/SGPT 62 U/L (12-78); ANION GAP 6 MEQ/L (8-16); AST/SGOT 42 U/L (7-37); BILIRUBIN,TOTAL 1.1 MG/DL (0.2-1.0); BLOOD UREA NITROGEN 14 MG/DL (7-18); CALCIUM LEVEL 8.8 MG/DL (8.5-10.1); CARBON DIOXIDE LEVEL 29 MEQ/L (21-32); CHLORIDE LEVEL 104 MEQ/L (98-107); CREATININE FOR GFR 0.74 MG/DL (0.70-1.30); GLOMERULAR FILTRATION RATE > 60.0 (>60); GLUCOSE, FASTING 93 MG/DL (70-100); SODIUM LEVEL 139 MEQ/L (136-145)
[2017-07-09] MEDS: PARoxetine 25 MG CR TAB (PAXIL CR) PO (08:33)
[2017-07-09] MEDS: MULTIVITAMINS/MINERALS THERAP 1 TAB PO (08:33)
[2017-07-09] MEDS: FOLIC ACID 1 MG TAB PO (08:33)
[2017-07-09] MEDS: THIAMINE 100 MG TAB PO ×2 (08:33→21:15)
[2017-07-09] MEDS: ACAMPROSATE CALCIUM 333 MG TABLET (CAMPRAL) PO ×3 (08:33→21:16)
[2017-07-09 10:41] LABS: HEPATITIS B SURFACE ANTIGEN NEGATIVE (NEGATIVE)
[2017-07-09 10:52] LABS: HEPATITIS B CORE ANTIBODY IGM NEGATIVE (NEGATIVE)
[2017-07-09 10:59] LABS: HEPATITIS A ANTIBODY IGM NEGATIVE (NEGATIVE)
[2017-07-09] MEDS ORDERED: diphenhydrAMINE 50 MG CAP PO (17:45)
[2017-07-09] MEDS: PROPRANOLOL 20 MG TAB PO (17:50)
[2017-07-09] MEDS: GABAPENTIN 300 MG CAP PO (21:16)
[2017-07-10] MEDS: THIAMINE 100 MG TAB PO ×2 (08:30→20:53)
[2017-07-10] MEDS: MULTIVITAMINS/MINERALS THERAP 1 TAB PO (08:30)
[2017-07-10] MEDS: FOLIC ACID 1 MG TAB PO (08:30)
[2017-07-10] MEDS: PARoxetine 25 MG CR TAB (PAXIL CR) PO (08:30)
[2017-07-10] MEDS: ACAMPROSATE CALCIUM 333 MG TABLET (CAMPRAL) PO ×3 (08:30→21:14)
[2017-07-10] MEDS: GABAPENTIN 300 MG CAP PO ×3 (08:30→20:53)
[2017-07-10] MEDS: PROPRANOLOL 20 MG TAB PO ×3 (08:30→20:56)
[2017-07-11] MEDS: MULTIVITAMINS/MINERALS THERAP 1 TAB PO (08:59)
[2017-07-11] MEDS: FOLIC ACID 1 MG TAB PO (08:59)
[2017-07-11] MEDS: PARoxetine 25 MG CR TAB (PAXIL CR) PO (08:59)
[2017-07-11] MEDS: ACAMPROSATE CALCIUM 333 MG TABLET (CAMPRAL) PO ×3 (08:59→21:04)
[2017-07-11] MEDS: GABAPENTIN 300 MG CAP PO ×3 (08:59→21:04)
[2017-07-11] MEDS: PROPRANOLOL 20 MG TAB PO ×2 (09:01→15:30)
[2017-07-12] MEDS: PARoxetine 25 MG CR TAB (PAXIL CR) PO (09:39)
[2017-07-12] MEDS: GABAPENTIN 300 MG CAP PO ×3 (09:39→21:14)
[2017-07-12] MEDS: ACAMPROSATE CALCIUM 333 MG TABLET (CAMPRAL) PO ×3 (09:41→21:14)
[2017-07-12] MEDS: PROPRANOLOL 20 MG TAB PO (09:44)
[2017-07-13] MEDS: ACETAMINOPHEN TAB 650MG DOSE (2X325MG) PO (00:05)
[2017-07-13] MEDS: PARoxetine 25 MG CR TAB (PAXIL CR) PO (08:30)
[2017-07-13] MEDS: ACAMPROSATE CALCIUM 333 MG TABLET (CAMPRAL) PO ×3 (08:31→20:37)
[2017-07-13] MEDS: GABAPENTIN 300 MG CAP PO ×3 (08:31→20:37)
[2017-07-13] MEDS: PROPRANOLOL 20 MG TAB PO ×2 (08:31→20:40)
[2017-07-14] MEDS: ACAMPROSATE CALCIUM 333 MG TABLET (CAMPRAL) PO (08:40)
[2017-07-14] MEDS: PARoxetine 25 MG CR TAB (PAXIL CR) PO (08:41)
[2017-07-14] MEDS: GABAPENTIN 300 MG CAP PO (08:41)
[2017-07-14] MEDS: PROPRANOLOL 20 MG TAB PO (08:43)
== END 2017-07-14 14:45 | disposition home or self-care (01) | DRG 881 ==
LOC: M ED INP 07-08 06:04 → M ED 22:13 → M PSY 07-08 09:05
DX: F43.21 Adjustment disorder with depressed mood (principal); F31.81 Bipolar II disorder; F10.10 Alcohol abuse, uncomplicated; Z79.899 Other long term (current) drug therapy; G47.00 Insomnia, unspecified; M54.5 Low back pain

== ENCOUNTER → 2018-01-07 | Outpatient (REF) | LOC: M SMT 13:43 | DX: Z00.00 Encounter for general adult medical examination without abnormal findings (principal) ==

== ENCOUNTER → 2018-08-24 | Outpatient (REF) ==
[~2018-08-24] MED LIST changes: +Artificial Tears OU; +DIPH50CA PO; +EYE5SOL OP; +GABA-843 PO; +NICO21DI6 TD; +PARO25TA PO; +PROP20TA72 PO; +PROP60TA14 PO; +QUET1TAB8 PO; +REFR0.5D8 OU; +SILD25TA GT; +SONA1CAP PO; +VIAG100T PO; +ZALE10CA PO; +ZOLO100T PO; +campral
== END ==
LOC: M LAB 13:18
DX: Z00.00 Encounter for general adult medical examination without abnormal findings (principal)